=== PATIENT | male | born 1990 | race Caucasian/White ===

== ENCOUNTER 2021-05-08 18:10 | Emergency (ER) | payer BC ==
[2021-05-08 18:37] VITALS: BP 108/65; PULSE 52; TEMP 98.7; BMI 25.7
== END 2021-05-08 19:56 | disposition home or self-care (01) ==
LOC: FER 18:10
PROC: 0HQGXZZ Repair Left Hand Skin, External Approach (ICD-10-PCS; principal; 2021-05-08)
DX: S62.213A Bennett's fracture, unspecified hand, initial encounter for closed fracture (principal); W26.8XXA Contact with other sharp object(s), not elsewhere classified, initial encounter; Y93.G1 Activity, food preparation and clean up
CPT/HCPCS: 99282-25